=== PATIENT | male | born 1985 | race African-American/Black ===

== ENCOUNTER 2017-04-19 02:52 | Emergency (ER) | payer SELFPAY ==
[~2017-04-19] VITALS: Ht 175.3 cm; Wt 65.8 kg
[2017-04-19] MEDS ORDERED: Dicyclomine HCl 10mg/5ml oral soln ORAL ONE (03:30)
[2017-04-19] MEDS ORDERED: Metoclopramide 10mg/2ml Inj IVP ONE (03:30)
[2017-04-19 03:49] LABS: BASOPHILS % (AUTO) 1.2 % (0.0-2.0); EOSINOPHILS % (AUTO) 2.6 % (0.0-3.0); LYMPHOCYTES % (AUTO) 16.2 % (20.0-45.0); MEAN CORPUSCULAR HEMOGLOBIN 29.4 PG (27.0-31.0); MEAN CORPUSCULAR HGB CONC 33.5 G/DL (32.0-36.0); MEAN CORPUSCULAR VOLUME 88 FL (80-99); MEAN PLATELET VOLUME 7.9 FL (6.5-10.1); MONOCYTES % (AUTO) 11.9 % (1.0-10.0); NEUTROPHILS % (AUTO) 68.1 % (45.0-75.0); PLATELET COUNT 282 K/UL (150-450); RED BLOOD COUNT 5.35 M/UL (4.70-6.10); RED CELL DISTRIBUTION WIDTH 10.3 % (11.6-14.8); WHITE BLOOD COUNT 8.3 K/UL (4.8-10.8)
[2017-04-19 03:52] LABS: APPEARANCE,URINE CLEAR; KETONES,URINE 3+ (NEGATIVE); LEUKOCYTE ESTERASE ,URINE NEGATIVE (NEGATIVE); NITRITE,URINE NEGATIVE (NEGATIVE); PH,URINE 5 (4.5-8.0); PROTEIN,URINE 3+ (NEGATIVE); UROBILINOGEN,URINE NORMAL MG/DL (0.0-1.0)
[2017-04-19 03:59] LABS: ANION GAP 10 mmol/L (5-15); CALCIUM 9.9 MG/DL (8.5-10.1); CARBON DIOXIDE 29 MMOL/L (21-32); CHLORIDE 97 MMOL/L (98-107); CREATININE 1.4 MG/DL (0.55-1.30); GLOMERULAR FILTRATION RATE 58.7 mL/min (>60); POTASSIUM 4.2 MMOL/L (3.5-5.1); SODIUM 136 MMOL/L (136-145)
[2017-04-19 04:03] LABS: ALANINE AMINOTRANSFERASE 26 U/L (12-78); ALBUMIN/GLOBULIN RATIO 0.8 (1.0-2.7); ASPARTATE AMINO TRANSFERASE 24 U/L (15-37); LIPASE 416 U/L (73-393)
[2017-04-19 04:05] LABS: BACTERIA,URINE FEW /HPF; MUCUS,URINE MODERATE /LPF (NONE/OCC); RBC,URINE 0-2 /HPF (0 - 0); SQUAMOUS EPITHELIAL CELL,UR OCCASIONAL /LPF (NONE/OCC); WBC,URINE 0-2 /HPF (0 - 0)
[2017-04-19] MEDS ORDERED: OMEPRAZOLE40 M1 ORAL (04:19)
--- NOTE | 2017-04-19 04:24 | Emergency Room Report ---
History of Present Illness General Chief Complaint: Abdominal Pain Source: Patient, Family Member Present Illness HPI 32-year-old male walks in with one week of epigastric pain. Was initially associated with diarrhea, now associated with nausea pain worse at 2 or 3 in the morning, gnawing type pain. 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 He went to urgent care earlier in the week, was given Pepcid to take at night before bedtime, which he has been doing, or pain is still there. Denies previous abdominal surgery or other medical problems. Smokes marijuana but hasn't smoked in 5 days. Usually smokes for insomnia or for decreased appetite. Allergies: Coded Allergies: No Known Allergies (Unverified , 04/19/17) Patient History Past Medical History: other - gastritis Past Surgical History: none Pertinent Family History: none Social History: Reports: smoking, drug use Immunizations: UTD Reviewed Nursing Documentation: PMH: Agreed, PSxH: Agreed Nursing Documentation-PMH Past Medical History: No Stated History Review of Systems All Other Systems: negative except mentioned in HPI Physical Exam Vital Signs Date Time Temp Pulse Resp B/P (MAP) Pulse Ox O2 Delivery O2 Flow Rate FiO2 04/19/17 02:58 97.9 91 16 116/77 98 Room Air Sp02 EP Interpretation: reviewed, normal General Appearance: normal inspection, well appearing, no apparent distress, alert, GCS 15, non-toxic Head: normocephalic, atraumatic ENT: normal ENT inspection, hearing grossly normal, normal voice Neck: normal inspection, full range of motion, supple, no bony tend Respiratory: normal inspection, lungs clear, normal breath sounds, no respiratory distress, no retraction, no wheezing Cardiovascular #1: regular rate, rhythm, no edema Gastrointestinal: normal inspection, normal bowel sounds, non tender, soft, no guarding, no hernia Genitourinary: no CVA tenderness Musculoskeletal: normal inspection, back normal, normal range of motion, Shonda' s Sign negative Neurologic: normal inspection, alert, responsive, speech normal Psychiatric: normal inspection, judgement/insight normal, mood/affect normal Skin: normal inspection, normal color, no rash Medical Decision Making Diagnostic Impression: Primary Impression: Gastritis Qualified Codes: K29.50 - Unspecified chronic gastritis without bleeding Additional Impression: Abdominal pain Qualified Codes: R10.13 - Epigastric pain ER Course Labs: No leukocytosis, H&H stable. Mild lipase elevation likely reactionary from vomiting. Abdomen remains nonfocal and serial exam Urine toxicology positive for marijuana Improved symptoms after IV Reglan and Bentyl and Pepcid IV. Epigastric pain likely from gastritis versus esophagitis especially given symptoms worse at 2 or 3 in the morning when acid production increases Prescribed Nexium to take each morning, advised to continue taking Pepcid at night followup information for gastroenterologists to obtain endoscopy when patient' s insurance ER course: Patient has remained stable during ED stay. Patient is to be discharged to home. Prescriptions given are nexium Patient is instructed to follow up with their primary care doctor within 5 days. Strict return precautions discussed with patient such as fever, chills, worsening/severe pain, nausea, vomiting, which may indicate severe illness. Patient verbalizes understanding and agrees with plan. Please note that this Emergency Department Report was dictated using [employer] quality analyst technology software, occasionally this can lead to erroneous entry secondary to interpretation by the dictation equipment Last Vital Signs Date Time Temp Pulse Resp B/P (MAP) Pulse Ox O2 Delivery O2 Flow Rate FiO2 04/19/17 02:58 97.9 91 16 116/77 98 Room Air Status: improved Disposition: HOME, SELF-CARE Condition: Improved Scripts Omeprazole (OMEPRAZOLE) 40 Mg Capsule. 40 MG ORAL morning for 30 Days, #30 CAP Prov: OKSANA DOBBINS M.D. 04/19/17 Patient Instructions: Gastritis, Adult Additional Instructions: - Continue taking famotidine you were given by Urgent Care every night before bed - Start taking nexium (omeprazole) each morning - Once you have insurance, call Dr Tejada for endoscopy: [phone] OKSANA DOBBINS M.D. Apr 19, 2017 04:24
[2017-04-19 04:25] VITALS: BP 116/77
== END 2017-04-19 04:28 | disposition home or self-care (01) ==
LOC: EMR 04:04
DX: K29.50 Unspecified chronic gastritis without bleeding (principal); F17.200 Nicotine dependence, unspecified, uncomplicated
CPT/HCPCS: 36415; 80053; 80307; 81003; 83605; 83690; 85025; 96374; 96375; 99284; J2765; S0028